=== PATIENT | female | born 1990 | race Caucasian/White ===

== ENCOUNTER 2024-09-22 14:13 | Emergency (ER) | payer OTHER | END 2024-09-22 17:45 | disposition home or self-care (01) | LOC: ED 14:13 | DX: I77.6 Arteritis, unspecified (principal) ==

== ENCOUNTER 2025-01-06 00:24 | Emergency (ER) | payer SELFPAY ==
[~2025-01-06] VITALS: Ht 154.9 cm; Wt 68.2 kg
--- OUTSIDE RECORDS SUMMARY | ~2025-01-06 | XMS | Continuity of Care Document ---
Demographics + + + | Address | [address] | | | [place] [address] | + + + | Preferred Language | Unknown | + + + | Marital Status | Never | + + + | Anabaptism Affiliation | Unknown | + + + | Race | White | + + + | Ethnic Group | Not or | + + + Author + + + | Author | [place] | + + + | Organization | [place] | + + + | Address | [address] | | | [place] [address] | + + + | Phone | | + + + Care Team Providers + + + + | Care Sequins Slinger Name | Role | Phone | + [...] + | 2024-12-11 00:00 | PERMETHRIN | [facility] | | | | [facility] | + + + + | 2024-12-11 00:00 | IVERMECTIN | [facility] | | | | [facility] | + + + + Problems + + + + | date | description | facility | + + + + | 2024-12-11 00:00 | Infestation by Sarcoptes | [facility] | | | scabiei | [facility] | + + + + Procedures No information. Results/Labs No information. Social History + + + + | date | description | facility | + + + + | (no date) | Unknown if ever smoked | [facility] | | | | [facility] | + + + + Vital Signs [...]
[~2025-01-06 00:24] MED LIST: ELIMITE60 GM TOP; IVERMECTIN3 MG PO; PREDNISONE20 MG PO; SILDENAFIL20 MG PO
--- OUTSIDE RECORDS SUMMARY | 2025-01-06 00:36 | XMS ---
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 Concepcion has no Care Guidelines for this patient. Zack VISIT COUNT (12 MO.) [address] [facility] [address] [facility] TOTAL 3 NOTE: Visits indicate total known visits. ED/C VISIT TRACKING (12 MO.) 01/06/2025 00:[address] [facility] [address] [facility] [place] TYPE: Emergency COMPLAINT: - MEDICAL CLEARANCE 12/11/2024 15:17 [facility] [place] TYPE[place] COMPLAINT: - BODY RASH DIAGNOSES: - Allergy status to other drugs, medicaments and biological substances - Rash and other nonspecific skin eruption - Scabies 09/22/2024 14:13 [facility] [place] TYPE[place] COMPLAINT: - FEET SWELLING DIAGNOSES: - Arteritis, unspecified - Rash and other nonspecific skin eruption INPATIENT VISIT TRACKING (12 MO.) No inpatient visits to display in this time frame [id number]
== END 2025-01-06 00:56 | disposition home or self-care (01) ==
LOC: ED 00:24
DX: F10.129 Alcohol abuse with intoxication, unspecified (principal)
CPT/HCPCS: 99284

== ENCOUNTER 2025-01-23 18:54 | Emergency (ER) | payer OTHER ==
[~2025-01-23] VITALS: Ht 154.9 cm; Wt 94.2 kg
--- OUTSIDE RECORDS SUMMARY | ~2025-01-23 | XMS | Continuity of Care Document ---
Demographics + + + | Address | [address] | | | [place] [address] | + + + | Preferred Language | Unknown | + + + | Marital Status | Never | + + + | Adventism Affiliation | Unknown | + + + | Race | White | + + + | Ethnic Group | Not or | + + + Author + + + | Author | [place] | + + + | Organization | [place] | + + + | Address | [address] | | | [place] [address] | + + + | Phone | | + + + Care Team Providers + + + + | Care Missile Mechanic Name | Role | Phone | [...] + | 2024-12-11 00:00 | PERMETHRIN | [facility] | | | | [facility] | + + + + | 2024-12-11 00:00 | IVERMECTIN | [facility] | | | | [facility] | + + + + Problems + + + + | date | description | facility | + + + + | 2024-12-11 00:00 | Infestation by Sarcoptes | [facility] | | | scabiei | [facility] | + + + + Procedures No information. Results/Labs No information. Social History + + + + | date | description | facility | + + + + | (no date) | Unknown if ever smoked | [facility] | | | | [facility] | + + + + [...]
--- OUTSIDE RECORDS SUMMARY | 2025-01-23 19:02 | XMS ---
PreManage Notification: IVETT HENDERSON Security Campaign Advisor Events No recent Security Events currently on file CRITERIA MET - [facility] - 2 Visits in 30 Days CARE PROVIDERS There are no care providers on record at this time. Concepcion has no Care Guidelines for this patient. Zack VISIT COUNT (12 MO.) [address] [facility] [address] [facility] TOTAL 4 NOTE: Visits indicate total known visits. ED/C VISIT TRACKING (12 MO.) 01/23/2025 18:[address] [facility] [address] [facility] [place] TYPE: Emergency COMPLAINT: - MEDICAL CLEARENCE 01/06/2025 00:34 [facility] [place] COMPLAINT: - MEDICAL CLEARANCE DIAGNOSES: - Alcohol abuse with intoxication, unspecified - Pain in unspecified wrist 12/11/2024 15:17 [facility] [place] TYPE: [place] [...] visits to display in this time frame [id number]
[2025-01-23] MEDS ORDERED: LORazepam 2 MG/ML VIAL IM ONE (20:00)
[2025-01-23] MEDS ORDERED: HALOPERIDOL LACTATE 5 MG/ML VIAL IM ONE (20:00)
[2025-01-23] MEDS ORDERED: KETAMINE HCL 500 MG/5 ML MDV IM ONE (20:30)
[2025-01-23 21:35] LABS: BASOPHILS 0.5 % (0.1-1.2); EOSINOPHILS 1.7 % (0.7-5.8); LYMPHOCYTES 21.4 % (19.3-51.7); MCH 28.9 PG (25.6-32.2); MCHC 32.0 g/dL (32.2-35.5); MCV 90.5 fL (79.4-94.8); MONOCYTES 11.3 % (4.7-12.5); NEUTROPHILS 64.7 % (34.0-71.1); RBC 4.53 M/uL (3.93-5.22)
[2025-01-23 21:36] LABS: ALCOHOL, MEDICAL <3 ng/dL (<3); ALT (SGPT) 23 U/L (14-59); AST (SGOT) 24 U/L (15-37); GLOMERULAR FILTRATION RATE,EST 63 mL/min (>60); PROTEIN, TOTAL 7.5 g/dL (6.4-8.2); TSH, 3RD GENERATION 1.878 uIU/mL (0.358-3.740); UREA NITROGEN 10 mg/dL (7-18)
[2025-01-24 18:44] VITALS: BP 124/87
== END 2025-01-24 18:44 | disposition home or self-care (01) ==
LOC: ED 18:54
PROVIDERS: Family Medicine
DX: R45.851 Suicidal ideations (principal); Z88.8 Allergy status to other drugs, medicaments and biological substances
CPT/HCPCS: 36415; 80053; 80307; 84443; 84703; 85025; 96372; 99284; G0480; J1200; J1630; J2060; J3490

== ENCOUNTER 2025-01-27 05:50 | Emergency (ER) | payer OTHER ==
[~2025-01-27] VITALS: Ht 154.9 cm; Wt 64.9 kg
--- OUTSIDE RECORDS SUMMARY | ~2025-01-27 | XMS | Continuity of Care Document ---
Demographics + + + | Address | [address] | | | [place] [address] | + + + | Preferred Language | Unknown | + + + | Marital Status | Never | + + + | Anabaptist Affiliation | Unknown | + + + | Race | White | + + + | Ethnic Group | Not or | + + + Author + + + | Author | [place] | + + + | Organization | [place] | + + + | Address | [address] | | | [place] [address] | + + + | Phone | | + + + Care Team Providers + + + + | Care Mangle Roll Operator Name | Role | Phone | + [...] + | 2024-12-11 00:00 | PERMETHRIN | [facility] | | | | [facility] | + + + + | 2024-12-11 00:00 | IVERMECTIN | [facility] | | | | [facility] | + + + + Problems + + + + | date | description | facility | + + + + | 2024-12-11 00:00 | Infestation by Sarcoptes | [facility] | | | scabiei | [facility] | + + + + Procedures No information. Results/Labs No information. Social History + + + + | date | description | facility | + + + + | (no date) | Unknown if ever smoked | [facility] | | | | [facility] | + + + + Vital Signs [...]
--- OUTSIDE RECORDS SUMMARY | 2025-01-27 05:51 | XMS ---
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 - 2 Visits in 30 Days CARE PROVIDERS There are no care providers on record at this time. Concepcion has no Care Guidelines for this patient. Zack VISIT COUNT (12 MO.) 5 [facility] TOTAL 5 NOTE: Visits indicate total known visits. ED/[facility] VISIT TRACKING (12 MO.) 01/27/2025 05:51 [facility] [place] TYPE: Emergency COMPLAINT: - HEAD INJURY 01/23/2025 18:55 [facility] [place] TYPE[place] COMPLAINT: - MEDICAL CLEARENCE [...] visits to display in this time frame [id number]
[2025-01-27] MEDS ORDERED: ACETAMINOPHEN 500 MG TAB PO ONE (06:15)
[2025-01-27 06:56] LABS: BLOOD/HGB, URINE NEGATIVE (Negative); KETONE, URINE NEGATIVE (Negative); LEUK ESTERASE, URINE SMALL (negative); NITRITE, URINE NEGATIVE (negative)
[2025-01-27 07:00] LABS: EPITHELIAL CELLS, URINE SQUAMOUS 3+ /lpf (0-1+)
[2025-01-27 07:01] LABS: BACTERIA, URINE 1+ /hpf (negative); CASTS, URINE NONE SEEN \\lpf; CRYSTALS, URINE NONE SEEN (0-1+); REFLEX CULTURE, URINE No (No)
[2025-01-27 07:28] LABS: AMPHETAMINES, URINE POSITIVE (NEGATIVE); BARBITURATES, URINE NEGATIVE (NEGATIVE); BENZODIAZEPINE, URINE NEGATIVE (NEGATIVE); CANNABINOID, URINE NEGATIVE (NEGATIVE); COCAINE, URINE NEGATIVE (NEGATIVE); ECSTASY, URINE NEGATIVE (NEGATIVE); FENTANYL, URINE NEGATIVE (NEGATIVE); METHADONE, URINE NEGATIVE (NEGATIVE); OPIATES, URINE NEGATIVE (NEGATIVE); OXYCODONE, URINE NEGATIVE (NEGATIVE); PHENCYCLIDINE, URINE NEGATIVE (NEGATIVE)
[2025-01-27 07:41] VITALS: BP 113/83
[2025-01-27] MEDS ORDERED: IBUPROFEN 600 MG TAB PO ONE (07:45)
== END 2025-01-27 07:41 | disposition home or self-care (01) ==
LOC: ED 05:50
PROVIDERS: Internal Medicine
DX: S39.011A Strain of muscle, fascia and tendon of abdomen, initial encounter (principal); W18.30XA Fall on same level, unspecified, initial encounter; Z88.1 Allergy status to other antibiotic agents; Z88.8 Allergy status to other drugs, medicaments and biological substances
CPT/HCPCS: 73502; 80307; 81001; 84703; 99283; A9270

== ENCOUNTER 2025-01-29 06:49 | Emergency (ER) | payer SELFPAY ==
--- OUTSIDE RECORDS SUMMARY | ~2025-01-29 | XMS | Continuity of Care Document ---
Demographics + + + | Address | [address] | | | [place] [address] | + + + | Preferred Language | Unknown | + + + | Marital Status | Never | + + + | Latter-Day Affiliation | Unknown | + + + | Race | White | + + + | Ethnic Group | Not or | + + + Author + + + | Author | [place] | + + + | Organization | [place] | + + + | Address | [address] | | | [place] [address] | + + + | Phone | | + + + Care Team Providers + + + + | Care Power Transformer Repairer Name | Role | Phone | + + + + Unavailable | Unavailable | + + + + Unavailable | Unavailable | + + + + Allergies and Intolerances + + + + + + | date | description | facility | reaction | severity | + + + + + + | 2024-12-11 | 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 | | 00:00 | [facility] | | | + + + + + + | 2024-12-11 | | [facility] | Agitation | Moderate | | 00:00 | Diphenhydramine | [facility] | | | + + + + + + | 2024-12-11 | 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 | | 00:00 | | [facility] | | | + + + + + + | 2024-12-11 | | [facility] - | Agitation | Moderate | | 00:00 | Diphenhydramine | [facility] | | | + + + + + + | 2024-12-11 | 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 | | 00:00 | | [facility] | | | + + + + + + | 2024-12-11 | | [facility] - | Agitation | Moderate | | 00:00 | Diphenhydramine | [facility] | | | + + + + + + Encounters No information. Functional Status No information. Immunizations No information. Medications + + + + | date | description | facility | + + + + | 2024-12-11 00:00 | PERMETHRIN | [facility] | | | | [facility] | + + + + | 2024-12-11 00:00 | IVERMECTIN | [facility] | | | | [facility] | + + + + Problems + + + + | date | description | facility | + + + + | 2024-12-11 00:00 | Infestation by Sarcoptes | [facility] | | | scabiei | [facility] | + + + + Procedures No information. Results/Labs No information. Social History + + + + | date | description | facility | + + + + | (no date) | Unknown if ever smoked | [facility] | | | | [facility] | + + + + Vital Signs + + + +---------+ | date | measurement | value | units | + + + +---------+ | 2024-12-11 00:00 | BMI | 29.4 | kg/m2 | + + + +---------+ | 2024-12-11 00:00 | BP_diastolic | 102 | mmHg | + + + +---------+ | 2024-12-11 00:00 | BP_systolic | 154 | mmHg | + + + +---------+ | 2024-12-11 00:00 | heart_rate | 140 | /min | + + + +---------+ | 2024-12-11 00:00 | height_metric | 154.94 | cm | + + + +---------+ | 2024-12-11 00:00 | height_standard | 61 | in | + + + +---------+ | 2024-12-11 00:00 | o2_saturation | 100 | % | + + + +---------+ | 2024-12-11 00:00 | respiration_rate | 17 | /min | + + + +---------+ | 2024-12-11 00:00 | temperature_metric | 36.89 | C | | | | | | + + + +---------+ | 2024-12-11 00:00 | | 98.4 | F | | | temperature_standar | | | | | d | | | + + + +---------+ | 2024-12-11 00:00 | weight_metric | 70.6 | kg | + + + +---------+ | 2024-12-11 00:00 | weight_standard | 155.64 | lb | + + + +---------+"
--- OUTSIDE RECORDS SUMMARY | 2025-01-29 06:50 | XMS ---
PreManage Notification: IVETT HENDERSON Security Envelope Maker Events No recent Security Events currently on file CRITERIA MET - 6 ED Visits in 6 Months - [facility] - 2 Visits in 30 Days CARE PROVIDERS There are no care providers on record at this time. Concepcion has no Care Guidelines for this patient. [facility] (12 MO[facility] NOTE: Visits indicate total known visits. ED/UCC VISIT TRACKING (12 MO.) [facility]25 [facility] [place] [facility] COMPLAINT: - HEADACHE 01/27/2025 05:51 [facility] [place] COMPLAINT: - HEAD INJURY DIAGNOSES: - Allergy status to other antibiotic agents - Allergy status to other drugs, medicaments and biological substances - Fall on same level, unspecified, initial encounter - Pain in right hip - Strain of muscle, fascia and tendon of abdomen, initial encounter 01/23/2025 18:55 [facility] [place] TYPE: Emergency COMPLAINT: - MEDICAL CLEARENCE 01/06/2025 00:34 [facility] [place] TYPE[place] COMPLAINT: - MEDICAL CLEARANCE DIAGNOSES: - Alcohol abuse with intoxication, unspecified - Pain in unspecified wrist 12/11/2024 15:17 [facility] [place] TYPE: Emergency COMPLAINT: - BODY RASH DIAGNOSES: - Allergy status to other drugs, medicaments and biological substances - Rash and other nonspecific skin eruption - Scabies 09/22/2024 14:13 [facility] [place] TYPE: Emergency COMPLAINT: - FEET SWELLING DIAGNOSES: - Arteritis, unspecified - Rash and other nonspecific skin eruption INPATIENT VISIT TRACKING (12 MO.) No inpatient visits to display in this time frame [id number]
[2025-01-29 07:05] VITALS: BP 00/00
== END 2025-01-29 07:05 | disposition left against medical advice (07) ==
LOC: ED 06:49
DX: Z53.21 Procedure and treatment not carried out due to patient leaving prior to being seen by health care provider (principal)

== ENCOUNTER 2025-02-21 11:58 | Emergency (ER) | payer OTHER ==
[~2025-02-21] VITALS: Ht 154.9 cm; Wt 66.7 kg
--- OUTSIDE RECORDS SUMMARY | ~2025-02-21 | XMS | Continuity of Care Document ---
Demographics + + + | Address | [address] | | | [place] [address] | + + + | Preferred Language | Unknown | + + + | Marital Status | Never | + + + | Orthodoxy Affiliation | Unknown | + + + | Race | White | + + + | Ethnic Group | Not or | + + + Author + + + | Author | [place] | + + + | Organization | [place] | + + + | Address | [address] | | | [place] [address] | + + + | Phone | | + + + Care Team Providers + + + + | Care Shank Stapler Name | Role | Phone | + [...] + | 2024-12-11 00:00 | PERMETHRIN | [facility] | | | | [facility] | + + + + | 2024-12-11 00:00 | IVERMECTIN | [facility] | | | | [facility] | + + + + Problems + + + + | date | description | facility | + + + + | 2024-12-11 00:00 | Infestation by Sarcoptes | [facility] | | | scabiei | [facility] | + + + + Procedures No information. Results/Labs No information. Social History + + + + | date | description | facility | + + + + | (no date) | Unknown if ever smoked | [facility] | | | | [facility] | + + + + Vital Signs [...]
--- OUTSIDE RECORDS SUMMARY | 2025-02-21 11:58 | XMS ---
PreManage Notification: IVETT HENDERSON Security Outside B2B Sales Events No recent Security Events currently on file CRITERIA MET - 6 ED Visits in 6 Months - [facility] - 2 Visits in 30 Days CARE PROVIDERS There are no care providers on record at this time. Concepcion has no Care Guidelines for this patient. [facility] V[facility] COUNT (12 MO.) [facility] NOTE: Visits indicate total known visits. ED/UCC VISIT TRACKING (12 MO.) 02[facility]21[facility]2025 11:58 [facility] [place] [facility] COMPLAINT: - NECK PAIN 01/29/2025 06:49 [facility] [place] COMPLAINT: - HEADACHE DIAGNOSES: - Headache, unspecified - Procedure and treatment not carried out due to patient leaving prior to being seen by health care provider 01/27/2025 05:51 [facility] [place] TYPE[place] COMPLAINT: - HEAD INJURY DIAGNOSES: - Allergy status to other antibiotic agents - Allergy status to other drugs, medicaments and biological substances - Fall on same level, unspecified, initial encounter - Pain in right hip - Strain of muscle, fascia and tendon of abdomen, initial encounter 01/23/2025 18:55 [facility] [place] TYPE[place] COMPLAINT: - MEDICAL CLEARENCE DIAGNOSES: - Allergy status to other drugs, medicaments and biological substances - Suicidal ideations 01/06/2025 00:34 [facility] [place] TYPE[place] Emergency [...] visits to display in this time frame [id number]
[2025-02-21] MEDS ORDERED: PEPCID20 MG PO (12:48)
[2025-02-21 12:55] VITALS: BP 142/86
[2025-02-21] MEDS ORDERED: PREDNISONE20 MG PO (22:44)
== END 2025-02-21 12:56 | disposition home or self-care (01) ==
LOC: ED 11:58
DX: R07.0 Pain in throat (principal); Z88.8 Allergy status to other drugs, medicaments and biological substances
CPT/HCPCS: 99282

== ENCOUNTER 2025-02-21 19:38 | Emergency (ER) | payer OTHER ==
[~2025-02-21] VITALS: Ht 154.9 cm; Wt 66.7 kg
--- OUTSIDE RECORDS SUMMARY | ~2025-02-21 | XMS | Continuity of Care Document ---
Demographics + + + | Address | [address] | | | [place] [address] | + + + | Preferred Language | Unknown | + + + | Marital Status | Never | + + + | Mandaeism Affiliation | Unknown | + + + | Race | White | + + + | Ethnic Group | Not or | + + + Author + + + | Author | [place] | + + + | Organization | [place] | + + + | Address | [address] | | | [place] [address] | + + + | Phone | | + + + Care Team Providers + + + + | Care Industrial Truck Mechanic Name | Role | Phone | + [...] + | 2024-12-11 00:00 | PERMETHRIN | [facility] | | | | [facility] | + + + + | 2024-12-11 00:00 | IVERMECTIN | [facility] | | | | [facility] | + + + + Problems + + + + | date | description | facility | + + + + | 2024-12-11 00:00 | Infestation by Sarcoptes | [facility] | | | scabiei | [facility] | + + + + Procedures No information. Results/Labs No information. Social History + + + + | date | description | facility | + + + + | (no date) | Unknown if ever smoked | [facility] | | | | [facility] | + + + + Vital [...]
[~2025-02-21 19:38] MED LIST changes: +PEPCID20 MG PO
--- OUTSIDE RECORDS SUMMARY | 2025-02-21 19:40 | XMS ---
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 Concepcion has no Care Guidelines for this patient. Zack VISIT COUNT (12 MO.) 8 [facility] [place] [facility] TOTAL 8 NOTE: Visits indicate total known visits. ED/UCC VISIT TRACKING (12 MO.) 02/21/2025 19:39 [facility] [place] COMPLAINT: - HARD TO SWALLOW 02/21/2025 11:58 [facility] [place] TYPE[place] COMPLAINT: - NECK PAIN [...] of abdomen, initial encounter 01/23/2025 18:55 [facility] [place] COMPLAINT: - MEDICAL CLEARENCE DIAGNOSES: - Allergy status to other drugs, medicaments and biological substances - Suicidal ideations 01/06/2025 00:34 [facility] [place] [place] COMPLAINT: - MEDICAL CLEARANCE DIAGNOSES: - Alcohol abuse with intoxication, unspecified - Pain in unspecified wrist 12/11/2024 15:17 [facility] [place] [facility] COMPLAINT: - BODY RASH DIAGNOSES: - Allergy status to other drugs, medicaments and biological substances - Rash and other nonspecific skin eruption - Scabies 09/22/2024 14:13 [facility] [place] [facility] COMPLAINT: - FEET SWELLING DIAGNOSES: - Arteritis, unspecified - Rash and other nonspecific skin eruption INPATIENT VISIT TRACKING (12 MO.) No inpatient visits to display in this time frame [id number]
[2025-02-21 20:40] LABS: BASOPHILS 0.7 % (0.1-1.2); EOSINOPHILS 1.5 % (0.7-5.8); LYMPHOCYTES 25.3 % (19.3-51.7); MCH 30.0 PG (25.6-32.2); MCHC 33.0 g/dL (32.2-35.5); MCV 91.0 fL (79.4-94.8); MONOCYTES 11.4 % (4.7-12.5); NEUTROPHILS 60.8 % (34.0-71.1); RBC 4.80 M/uL (3.93-5.22)
[2025-02-21] MEDS ORDERED: PREDNISONE20 MG PO (22:44)
[2025-02-21 23:07] VITALS: BP 121/81
== END 2025-02-21 23:07 | disposition home or self-care (01) ==
LOC: ED 19:38
PROVIDERS: Family Medicine
DX: R09.89 Other specified symptoms and signs involving the circulatory and respiratory systems (principal); Z88.8 Allergy status to other drugs, medicaments and biological substances; Z79.899 Other long term (current) drug therapy
CPT/HCPCS: 36415; 70360; 85025; 86140; 99283

== ENCOUNTER 2025-04-10 14:37 | Emergency (ER) | payer OTHER ==
[~2025-04-10] VITALS: Ht 154.9 cm; Wt 65.0 kg
--- OUTSIDE RECORDS SUMMARY | 2025-04-10 14:38 | XMS ---
PreManage Notification: IVETT HENDERSON Security Service Tester Events No recent Security Events currently on file CRITERIA MET - 6 ED Visits in 6 Months CARE PROVIDERS There are no care providers on record at this time. Concepcion has no Care Guidelines for this patient. Zack VISIT COUNT (12 MO.) 9 [facility] [place] TOTAL 10 NOTE: Visits indicate total known visits. ED/UCC VISIT TRACKING (12 MO.) 04/10/2025 14:37 [facility] [place] COMPLAINT: - COLD SYMPTOMS 03/03/2025 18:48 [facility] [place] TYPE: Emergency DIAGNOSES: - Cervicalgia - Jaw pain - Other chronic pain - Other malaise - Other stimulant use, unspecified, uncomplicated - SORE THROAT 02/21/2025 19:39 [facility] [place] TYPE[place] COMPLAINT: - HARD TO SWALLOW DIAGNOSES: - Allergy status to other drugs, medicaments and biological substances - Other long term care pharmacist (current) drug therapy - Other specified symptoms and signs involving the circulatory and respiratory systems 02/21/2025 11:58 [facility] [place] COMPLAINT: - NECK PAIN DIAGNOSES: - Acute pharyngitis, unspecified - Allergy status to other drugs, medicaments and biological substances - Pain in throat - Pain in throat 01/29/2025 06:49 [facility] [place] TYPE: Emergency COMPLAINT: - HEADACHE DIAGNOSES: - Headache, unspecified - Procedure and treatment not carried out due to patient leaving prior to being seen by health care provider 01/27/2025 05:51 [facility] [place] [facility] [place] TYPE: Emergency COMPLAINT: - HEAD INJURY DIAGNOSES: - Allergy status to other antibiotic agents - Allergy status to other drugs, medicaments and biological substances - Fall on same level, unspecified, initial encounter - Pain in right hip - Strain of muscle, fascia and tendon of abdomen, initial encounter 01/23/2025 18:55 [facility] [place] [facility] [place] Emergency COMPLAINT: - MEDICAL CLEARENCE DIAGNOSES: - Allergy status to other drugs, medicaments and biological substances - Suicidal ideations 01/06/2025 00:34 [facility] [place]: Emergency COMPLAINT: - MEDICAL [...] visits to display in this time frame [id number]
[2025-04-10 17:56] VITALS: BP 144/92
== END 2025-04-10 17:56 | disposition other institution, planned readmission (95) ==
LOC: ED 14:37
DX: J02.9 Acute pharyngitis, unspecified (principal); R51.9 Headache, unspecified; Z53.29 Procedure and treatment not carried out because of patient's decision for other reasons
CPT/HCPCS: 99282